=== PATIENT | male | born 1960 | race Caucasian/White ===

== ENCOUNTER 2022-08-04 12:47 | Observation (INO) | payer OTHER ==
[2022-08-04] MEDS ORDERED: Sodium Chloride 0.9% 10 ML Syringe FLUSH PRN (13:18)
[2022-08-04] MEDS ORDERED: Aspirin 81 MG Tab.Chew PO ONE (13:19)
[2022-08-04] MEDS: Enoxaparin 40 MG/0.4 ML Syringe SUBCUT SCH (21:19)
[2022-08-05] MEDS: Aspirin 325 MG Tab.EC PO SCH (08:35)
[2022-08-05] MEDS: Enoxaparin 40 MG/0.4 ML Syringe SUBCUT SCH (20:23)
[2022-08-05] MEDS ORDERED: atorvaSTATin 20 MG Tab PO SCH (21:00)
[2022-08-06] MEDS ORDERED: Sodium Chloride 0.9% 10 ML Syringe FLUSH PRN (09:46)
[2022-08-06] MEDS ORDERED: Aspirin 325 MG Tab.EC PO SCH (10:00)
[2022-08-06] MEDS: Aspirin 325 MG Tab.EC PO SCH (11:01)
[2022-08-06] MEDS ORDERED: Enoxaparin 40 MG/0.4 ML Syringe SUBCUT SCH (21:00)
[2022-08-06] MEDS ORDERED: atorvaSTATin 20 MG Tab PO SCH (21:00)
== END 2022-08-06 14:16 | disposition home or self-care (01) ==
LOC: JD.ED 12:47 → JD.MS 17:18 → UNDOADMIN 17:18 → JD.MS 17:18
PROVIDERS: ADMIT Internal Medicine Cardiovascular Disease; ATTEND Internal Medicine Cardiovascular Disease
DX: I49.9 Cardiac arrhythmia, unspecified (principal); R00.2 Palpitations; E78.1 Pure hyperglyceridemia; E66.9 Obesity, unspecified; I47.20 Ventricular tachycardia, unspecified; Z68.34 Body mass index [BMI] 34.0-34.9, adult; Z79.82 Long term (current) use of aspirin
CPT/HCPCS: 36415; 71045; 78452; 80053; 80061; 83735; 83880; 84484; 85025; 85610; 85730; 93005; 93017; 93246; 93306; 96372; 99285; A9270; A9500; G0378; J1650; J3490; 93225; 93226; 99221; 99232; 99238